=== PATIENT | female | born 1990 | race Hispanic/Latino ===

== ENCOUNTER 2018-09-01 21:09 | Emergency (ER) | payer OTHER | END 2018-09-01 23:02 | disposition home or self-care (01) | LOC: EDH 21:09 | DX: J20.9 Acute bronchitis, unspecified (principal) | CPT/HCPCS: 71046; 81025 ==

== ENCOUNTER 2018-12-24 17:49 | Emergency (ER) | payer SELFPAY ==
[2018-12-24 18:12] LABS: APPEARANCE,URINE SL CLOUDY (CLEAR); BILIRUBIN,URINE MODERATE (NEGATIVE); COLOR,URINE YELLOW (YELLOW); GLUCOSE, URINE (UA) 100 mg/dL (NEGATIVE); KETONES,URINE 5 mg/dL (NEGATIVE); LEUKOCYTE ESTERASE ,URINE TRACE (NEGATIVE); NITRATE,URINE NEGATIVE (NEGATIVE); OCCULT BLOOD,URINE TRACE-INTACT (NEGATIVE); PH,URINE 5.5 (5.0-8.0); PROTEIN,URINE 30 mg/dL (NEGATIVE)
[2018-12-24 18:15] LABS: HCG,QUAL RESULT NEGATIVE (NEGATIVE)
[2018-12-24] MEDS ORDERED: ACETAMINOPHEN EXTRA STRENGTH 500 MG TABLET ONE (18:19)
[2018-12-24 18:23] LABS: BASOPHILS % (AUTO) 0.7 % (0.0-5.0); EOSINOPHILS % (AUTO) 0.1 % (0.0-8.0); HEMATOCRIT 39.7 % (36-48); LYMPHOCYTES % (AUTO) 26.1 % (21.0-51.0); MEAN CORPUSCULAR HEMOGLOBIN 30.9 pg (27.0-33.0); MONOCYTES % (AUTO) 3.3 % (3.0-13.0); NEUTROPHILS % (AUTO) 69.8 % (40.0-77.0); NUCLEATED RED BLOOD CELLS 0.1 % (0.0-0.19); PLATELET COUNT (AUTO) 98 K/uL (130-400); RED BLOOD CELL COUNT(AUTO) 4.37 MIL/uL (4.00-5.50); RED CELL DISTRIBUTION WIDTH 13.5 % (11.0-15.5); WHITE BLOOD COUNT (AUTO) 9.8 K/uL (4.8-10.8)
[2018-12-24 18:29] LABS: MUCUS,URINE Few LPF (None Seen)
[2018-12-24 18:30] LABS: BACTERIA,URINE Moderate /HPF (None Seen)
[2018-12-24 18:37] LABS: RAPID GROUP A STREP NEGATIVE (NEGATIVE)
[2018-12-24 18:48] LABS: CREATININE 1.1 mg/dL (0.5-1.5); POTASSIUM 3.7 mmol/L (3.5-5.1)
[2018-12-24 18:49] LABS: ALBUMIN 2.9 g/dL (3.5-5.0); BILIRUBIN,TOTAL 1.2 mg/dL (0.2-1.0); TOTAL PROTEIN, SERUM 6.8 g/dL (6.0-8.3)
[2018-12-24 18:51] LABS: PLATELET MORPHOLOGY COMMENT DECREASED
[2018-12-24] MEDS ORDERED: DOXYCYCLINE 100MG+NS 250ML 250 ML IV ONE (18:59)
[2018-12-24] MEDS ORDERED: SODIUM CHLORIDE 0.9% 1000ML 1,000 ML IV ONE (19:01)
== END 2018-12-24 21:13 | disposition home or self-care (01) ==
LOC: EDH 17:49
DX: R50.9 Fever, unspecified (principal); R51 Headache; J02.9 Acute pharyngitis, unspecified; R11.0 Nausea
CPT/HCPCS: 36415; 76705; 80053; 81025; 81001; 85025; 86757; 87804 ×2; 87880; 96365; 96366; 99285; J3490; J7030